=== PATIENT | female | born 1935 | race Hispanic/Latino ===

== ENCOUNTER 2023-09-28 09:35 | Emergency (ER) | payer MEDICARE ==
[~2023-09-28] VITALS: Ht 162.6 cm; Wt 66.7 kg
[2023-09-28 09:44] VITALS: O2SAT 100
[2023-09-28] MEDS: HYDROCODONE/APAP 5MG-325MG TAB PO ONE (10:33)
[2023-09-28] MEDS ORDERED: HYDROCODONE/APAP 5MG-325MG TAB ONE (10:34)
[2023-09-28] MEDS: ONDANSETRON HCL 4 MG ORAL DISINTEGRATING TAB PO ONE (10:35)
[2023-09-28] MEDS ORDERED: ULTRAM 50MG50 MG PO (13:49)
== END 2023-09-28 14:05 | disposition home or self-care (01) ==
LOC: ER 09:46
DX: M47.816 Spondylosis without myelopathy or radiculopathy, lumbar region (principal); S32.19XA Other fracture of sacrum, initial encounter for closed fracture; R42 Dizziness and giddiness; W01.0XXA Fall on same level from slipping, tripping and stumbling without subsequent striking against object, initial encounter; Y92.89 Other specified places as the place of occurrence of the external cause; I10 Essential (primary) hypertension; E11.9 Type 2 diabetes mellitus without complications; E78.5 Hyperlipidemia, unspecified; E03.9 Hypothyroidism, unspecified; M54.9 Dorsalgia, unspecified; G89.29 Other chronic pain
CPT/HCPCS: 72131; 72192; 99283; Q0162

== ENCOUNTER 2025-05-01 10:17 | Emergency (ER) | payer MEDICARE ==
[~2025-05-01] VITALS: Ht 162.6 cm; Wt 59.0 kg
[~2025-05-01 10:17] MED LIST: ULTRAM 50MG50 MG PO
[2025-05-01 10:40] VITALS: TEMP 97.8
[2025-05-01] MEDS ORDERED: LEVOTHYROXINE75 MCG PO (10:49)
[2025-05-01] MEDS ORDERED: AMLODIPINE BESYL5 MG PO (10:49)
[2025-05-01] MEDS ORDERED: METOPROLOL TART25 MG PO (10:49)
[2025-05-01] MEDS ORDERED: ATORVASTATIN CA10 MG PO (10:49)
[2025-05-01] MEDS ORDERED: LOSARTAN POTASS25 MG PO (10:49)
[2025-05-01] MEDS ORDERED: ONDANSETRON ODT4 MG PO (10:50)
[2025-05-01] MEDS ORDERED: PROTONIX40 MG PO (10:50)
[2025-05-01] MEDS: ONDANSETRON HCL INJ 2MG/ML 2ML 2 MG/ML VIAL IV STA (11:45)
[2025-05-01] MEDS: Morphine 2mg Syringe 2 MG/ML SYR IV STA (11:46)
[2025-05-01] MEDS: SODIUM CHLORIDE 0.9% 1000ML 1,000 ML IV STA (11:46)
[2025-05-01 12:11] LABS: BASOPHILS % 0.5 % (0.0-1.0); EOSINOPHILS % 2.0 % (0.0-6.0); LYMPHOCYTES % 21.5 % (18.0-39.1); MONOCYTES % 10.4 % (4.4-11.3); NEUTROPHILS % 65.4 % (38.7-80.0); RED CELL DISTRIBUTION WIDTH 13.2 % (11.7-14.4)
[2025-05-01 12:38] LABS: INR 0.95
[2025-05-01 12:48] VITALS: PULSE 63; RESP 16; O2SAT 100
[2025-05-01 12:48] LABS: EST GLOMERULAR FILTRATION RATE 61.0 ML/MIN (>=60)
[2025-05-01] MEDS ORDERED: IOPAMIDOL 370 MG/ML 100 ML INFUS..BTL INJ ONE ×2 (12:54→13:08)
[2025-05-01 13:14] LABS: LEUKOCYTE ESTERASE ,URINE TRACE (NEGATIVE); PROTEIN,URINE DIPSTICK NEGATIVE (NEGATIVE); URINE UROBILINOGEN 0.2 mg/dL (0.2 - 1)
[2025-05-01 13:22] LABS: EPITHELIAL CELLS,URINE RARE /LPF; WBC,URINE (MAN) 0-5 /HPF (0-5)
[2025-05-01] MEDS ORDERED: DICYCLOMINE HCL10 MG PO (14:10)
[2025-05-01] MEDS: BELLADONNA ALK/PHENOBARBITAL 5 ML UDC PO ONE (14:47)
[2025-05-01] MEDS: MAGNESIUM/ALUMINUM/SIMETHICONE 30 ML UDC PO ONE (14:47)
== END 2025-05-01 14:40 | disposition home or self-care (01) ==
LOC: ER 10:30
DX: R10.30 Lower abdominal pain, unspecified (principal); K29.70 Gastritis, unspecified, without bleeding; I10 Essential (primary) hypertension; E11.9 Type 2 diabetes mellitus without complications; E03.9 Hypothyroidism, unspecified; E78.5 Hyperlipidemia, unspecified; M54.9 Dorsalgia, unspecified; G89.29 Other chronic pain
CPT/HCPCS: 36415; 71045; 74177; 80053; 81001; 83690; 83735; 84484; 85025; 85610; 85730; 93005; 99284; J2270; J2405; J2470; J7030; Q9967